=== PATIENT | female | born 1995 | race Caucasian/White ===

== ENCOUNTER → 2016-12-09 23:19 | Observation (INO) ==
--- NOTE | 2016-12-09 20:54 | OB/GYN History & Physical ---
Date of Encounter: 12/09/16 Time of Encounter: 20:46 Assessment and Plan (1) Uterine contractions during Current visit: Yes Status: Acute NST CBC 1 Liter LR fluid bolus Urinalysis and reflex culture Serial vaginal exams POC per consult with Dr Carrion (2) History of delivery affecting Current visit: Yes Status: Acute Dr Carrion made aware of patient's arrival and history. History of Present Illness Chief complaint: Contractions HPI: Ms. Delacruz is a 21 year old at 38 weeks and 2 days gestation that arrives to labor and delivery with c/o abdominal cramping throughout the day. She states she is having hot flashes and nausea. She has eaten today with her last meal at 1300. This is complicated by a previous LTCS and GDM A1. She states decreased positive movement during the day, but this has resolved within the past 2 hours. She denies headache, vision changes, epigastric pain, LOF, and vaginal bleeding. She is scheduled to have her repeat C/S with Dr Orellana on Thursday morning. Her blood type is O+ She is GBS negative She is rubella and varicella immune She is HepB and HIV nonreactive Past Med Surg Social Fam HX - Past Medical History Medical history: no medical history Psychiatric history: anxiety, depression - Past Surgical History Surgical History: appendectomy, cholecystectomy - Social History Smoking Status: Current every day smoker Packs per day: 1/2 pack a day Smokeless Tobacco Status: No Alcohol use: none Drug use: none Obstetrical History - Pregnancies : 2 Para: 1 Term: 1 : 0 Ab's: 0 Livin Medications and Allergies metFORMIN [Glucophage] 500 mg PO BIDWM 12/09/16 [History] Allergies No Known Allergies Allergy (Verified 12/09/16 20:19) Review of System OB All systems PM: reviewed and no additional remarkable complaints except as stated Exam - Constitutional Constitutional: well developed, well nourished, no acute distress, average body habitus - HEENT HEENT: Normocephaly, Mucus Membranes Moist - Lungs Respiratory exam: CTAB - Cardiovascular Cardiovascular exam: RRR, +S1, +S2 - Abdomen Abdomen: Present: bowel sounds normal, gravid, non tender - Extremities Extremities exam: normal capillary refill, normal inspection, radial pulses palpable and symetrical Deep Tendon Reflex Grade: 1+ Diminished - Vagina Vagina: Present: normal moisture - Cervix Dilation: 0 (FT per RN exam) Station: -3 - Uterus Uterus exam: Present: normal size, normal contour Results All other labs normal. - VTE Reasons for not Prescribing Prophylaxis: Treatment not Indicated - Low risk for VTE
[2016-12-09 21:14] LABS: Basophils % 0.2 %; Eosinophils # 0.2 K/mcL (0.0-0.6); Eosinophils % 1.8 %; Hematocrit 35.3 % (35.3-44.9); Hemoglobin 11.9 g/dL (11.5-15.4); Immature Granulocytes % 0.5 % (0-4); Immature Platelets 10.8 % (1.1-6.1); Lymphocytes # 2.4 K/mcL (0.6-4.6); Lymphocytes % 20.9 %; Mean Corpuscular HGB Conc 33.7 g/dL (31.6-35.5); Mean Corpuscular Hemoglobin 26.9 pg (28.0-33.3); Mean Corpuscular Volume 79.7 fL (83.0-100.0); Mean Platelet Volume 11.3 fL (9.4-12.4); Monocytes % 8.6 %; Neutrophils # 7.7 K/mcL (1.6-8.9); Platelet Count 181 K/mcL (140-400); Red Blood Count 4.43 M/mcL (3.82-4.97); Red Cell Distribution Width 14.3 % (11.5-14.5)
[2016-12-09 22:06] LABS: Bilirubin,Urine Small (Negative); Blood,Urine Negative (Negative); Clarity,Urine Cloudy (Clear); Color,Urine Dark Yellow (Yellow); Glucose,Urine (UA) Normal (Normal); Ketones,Urine Trace mg/dL (Negative); Leukocyte Esterase,Urine Small (Negative); Nitrite,Urine Negative (Negative); Protein,Urine Trace mg/dL (Neg-Trace); Specific Gravity,Urine 1.029 (1.010-1.025); Urobilinogen,Urine Normal (Normal)
[2016-12-09 22:07] LABS: Bacteria,Urine None Seen per hpf (None-Few); Hyaline Casts,Urine None Seen per lpf (None-Few); Squamous Epithelial Cell,Urine Many per lpf (None-Few)
[2016-12-09 22:25] LABS: RBC,Urine 0-3 per hpf (0-3)
--- NOTE | 2016-12-09 22:44 | Discharge Summary ---
Date of Encounter: 12/09/16 Time of Encounter: 22:44 - Discharge Diagnosis (1) Uterine contractions during Priority: Primary Status: Acute Comments: Dehydration present per urinalysis Serial vaginal exams; no cervical change NST reactive; 130 baseline with 15x15 accels and moderate variability. Contractions every 3-5 minutes per toco. Contractions palpate mild and uterus palpates soft between contractions. Prodromal labor without cervical change - therapeutic rest with 5mg of ambien now and send home Follow up with routine care as previously scheduled. Discharge home with labor precautions; patient to return if contractions don't stop in am. (2) History of delivery affecting Priority: Secondary Status: Acute Comments: No cervical change prior to 39 weeks with contractions. Discharge home per consult with POC with Dr Carrion (3) Dehydration Priority: Primary Status: Acute Comments: Dehydrated per urinalysis. 2L LR bolus given Encouraged patient to drink at least 2 liters of water daily (4) Proteinuria complicating Priority: Primary Status: Acute Comments: Discussed POC with Dr Carrion Refer to [facility] on outpatient basis - Discharge Medications Home Medications: metFORMIN [Glucophage] 500 mg PO BIDWM 12/09/16 [History] Allergies/Adverse Reactions: Allergies No Known Allergies Allergy (Verified 12/09/16 20:19) Data Procedures and tests throughout hospitalization: Laboratory Tests 12/09/16 12/09/16 20:45 21:55 WBC 11.4 H RBC 4.43 Hgb 11.9 Hct 35.3 MCV 79.7 L MCH 26.9 L MCHC 33.7 RDW 14.3 Plt Count 181 MPV 11.3 Immature Gran % 0.5 Seg Neutrophils % 68.0 Lymphocytes % 20.9 Monocytes % 8.6 Eosinophils % 1.8 Basophils % 0.2 Neutrophils # 7.7 Lymphocytes # 2.4 Monocytes # 1.0 Eosinophils # 0.2 Basophils # 0.0 Immature Plt Fraction 10.8 H Urine Color Dark Yellow Urine Clarity Cloudy A Urine pH 6.0 Ur Specific Quinn 1.029 H Urine Protein Trace Urine Glucose (UA) Normal Urine Ketones Trace H Urine Blood Negative Urine Nitrite Negative Urine Bilirubin Small H Urine Urobilinogen Normal Ur Leukocyte Esterase Small H Urine Microscopic RBC 0-3 Urine Microscopic WBC 3-5 H Ur Squamous Epith Cells Many H Urine Bacteria None Seen Hyaline Casts None Seen Ur Culture Indicated? YES A Labs on day of discharge: Labs from last 24 hours 12/09/16 12/09/16 21:55 20:45 WBC 11.4 H RBC 4.43 Hgb 11.9 Hct 35.3 MCV 79.7 L MCH 26.9 L MCHC 33.7 RDW 14.3 Plt Count 181 MPV 11.3 Immature Gran % 0.5 Seg Neutrophils % 68.0 Lymphocytes % 20.9 Monocytes % 8.6 Eosinophils % 1.8 Basophils % 0.2 Neutrophils # 7.7 Lymphocytes # 2.4 Monocytes # 1.0 Eosinophils # 0.2 Basophils # 0.0 Immature Plt Fraction 10.8 H Urine Color Dark Yellow Urine Clarity Cloudy A Urine pH 6.0 Ur Specific Quinn 1.029 H Urine Protein Trace Urine Glucose (UA) Normal Urine Ketones Trace H Urine Blood Negative Urine Nitrite Negative Urine Bilirubin Small H Urine Urobilinogen Normal Ur Leukocyte Esterase Small H Urine Microscopic RBC 0-3 Urine Microscopic WBC 3-5 H Ur Squamous Epith Cells Many H Urine Bacteria None Seen Hyaline Casts None Seen Ur Culture Indicated? YES A Date of admission: 12/09/16 20:01 Discharging clinician: Macey Lopez Anticipated date of discharge: 12/09/16 - Patient Status Disposition: Home, Self-Care Condition: Good Functional capacity at discharge: independent ambulation Overall status at discharge: patient is progressing back to baseline - Discharge Instructions Follow Up With: Kvng Orellana DO [Partnered Physician] - - Diet and Activity Activity: resume usual activities as tolerated Diet: regular diet (Drink at least 2 liters of water daily in addition to other liquids. 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
[~2016-12-09 23:19] MED LIST: Ringers Solution, Lactated 1,000 ML IVC ONE; Ringers Solution, Lactated 1,000 ML ONE
== END | disposition home or self-care (01) ==
LOC: 1NENULAB
PROVIDERS: ADMIT Student in an Organized Health Care Education/Training Program; ATTEND Student in an Organized Health Care Education/Training Program

== ENCOUNTER → 2016-12-11 17:15 | Observation (INO) ==
[2016-12-11 17:05] VITALS: BP 118/74
--- NOTE | 2016-12-11 17:54 | OB/GYN Progress Note ---
Date of Encounter: 12/11/16 Time of Encounter: 17:50 - Assessment and Plan (1) False labor Current Visit: Yes Status: Acute Pt continues to have contractions every 3-4 minutes, but able to be distracted through them. Pt was checked at [address] Orellana. Exam remains unchanged still /. Will discharge home. Discussed labor precautions and when to return to triage discussed with patient and family. All vocalize understanding. Dr. Delaney updated. (2) NST (non-stress test) reactive Current Visit: Yes Status: Acute Baseline 145 Subjective - Subjective Interval history: sent from office after BPP for labor evaluation. Pt states she has been gerhard off and on for the last few days. Pt reports movement, denies leaking of fluid or vaginal bleeding. Pt states she feels a little pelvic pressure with each contraction. Repeat C/S if in labor. Antepartum ROS: movement normal, contractions, no loss of fluid, no vaginal bleeding Objective - Vital Signs Vital Signs: Vital Signs Temp Pulse Resp BP Pulse Ox 12/11/16 16:58 97.5 F L 88 14 118/74 99 Intake and Output 12/11/16 12/11/16 12/11/16 07:59 15:59 23:59 Other: Weight 90.4 kg Patient Weight 12/11/16 23:59 Weight 90.4 kg - Exam FHR: auscultation normal FHR comments: Reactive NST baseline 145 Auscultation: bilateral: normal Abdomen: Present: normal appearance Uterus: Present: normal Cervical dilation:
== END | disposition home or self-care (01) ==
LOC: 1NENULAB
PROVIDERS: ADMIT Obstetrics & Gynecology; ATTEND Obstetrics & Gynecology

== ENCOUNTER 2016-12-13 15:56 | Inpatient (IN) ==
[~2016-12-13 15:56] MED LIST changes: +CeFAZolin Pre 2,000 MG/100 ML 2,000 MG/100 ML BAG IVPB ONE; +Famotidine 20 MG/2 ML VIAL IVP ONE; +Metoclopramide 10 MG/2 ML VIAL IVP ONE; -Ringers Solution, Lactated 1,000 ML IVC ONE; -Ringers Solution, Lactated 1,000 ML ONE
[2016-12-13] MEDS ORDERED: Ringers Solution, Lactated 1,000 ML ONE ×3 (15:58→18:18)
[2016-12-13] MEDS ORDERED: Ringers Solution, Lactated 1,000 ML IVC SCH ×2 (16:00→19:33)
[2016-12-13] MEDS ORDERED: Oxytocin 20 units/ LR 1000 mL 20 UNIT/1,000 ML BAG IVC SCH ×2 (16:00→19:33)
--- NOTE | 2016-12-13 16:06 | OB/GYN History & Physical ---
Date of Encounter: 12/13/16 Time of Encounter: 16:00 Assessment and Plan (1) and not yet delivered in third trimester Current visit: Yes Status: Acute (2) 38 weeks gestation of Current visit: Yes Status: Acute (3) Active labor at term Current visit: Yes Status: Acute (4) Gestational diabetes mellitus (GDM) in third trimester controlled on oral hypoglycemic drug Current visit: Yes Status: Acute (5) History of delivery affecting Current visit: No Status: Acute We will prepare the patient for a repeat low transverse section History of Present Illness HPI: Ms. Delacruz is a 21 year old female 2 para 1001 at 38-6/7 weeks who presented to labor and delivery with complaint of contractions getting more uncomfortable. Patient has been seen on labor and delivery twice in the past week for contractions. She was having irregular contractions no cervical change was noted and she was discharged home. Approximately 2 days ago patient was seen for an NST she was complaining of no movement and biophysical was obtained 8 out of 8. The patient was examined at that time was noted to be fingertip to 1 cm and she had previously been fingertip per patient's 2 days prior to that. Patient was sent to labor and delivery 2 days ago for prolonged monitoring because of complaining of contractions but no further change was noted and she was discharged home. Patient had called this morning stating that she been gerhard all day yesterday and the contractions getting stronger. She was encouraged to drink some fluids and see how the contractions were. She states this started to space out but approximately 2 hours ago started getting more uncomfortable that she came on in. Patient was noted to have made cervical change she is now 2 cm -2 station. Patient is a gestational diabetic diet control. Patient did not follow-up with a three-hour Glucola pill approximately 3 weeks ago and she failed all 4 test. We have had her on a diet ever since and started on metformin but has not taken any for 2 days. all blood sugars have been within normal limits. We did get her in for dietary consult the patient no showed. She is a previous section was scheduled in 2 days for her repeat. Patient is Rh+ and GBS negative and rubella positive Past Med Surg Social Fam HX - Past Medical History Medical history: no medical history Psychiatric history: anxiety, depression - Past Surgical History Surgical History: appendectomy, , cholecystectomy - Social History Smoking Status: Current every day smoker Packs per day: <0.5 Smokeless Tobacco Status: No Alcohol use: none Drug use: none Occupational status: employed Current living situation: Home - Independent Activity Level: Independent ambulation Recent Out of Country Travel Within the Last 8 Weeks: No Exposure or Possible Exposure to Illness During Travel: No - Family History Mother Adopted: Yes Living Status: Still Living Hx Family Cardiac Disorders: No Hx Family Respiratory Disorders: No Hx Family Cancer: No Hx Family GI Disorders: No Hx Family Endocrine Disorder: No Hx Family Neuromuscular Disorders: No Hx Family Neurologic Disorders: No Hx Family HEENT Disorders: No Hx Family Autoimmune Disorders: No - Additional Family History Additional family history: Patient was adopted Obstetrical History - Pregnancies : 2 Para: 1 Term: 1 Livin Medications and Allergies metFORMIN [Glucophage] 500 mg PO BIDWM 12/09/16 [History] Allergies No Known Allergies Allergy (Verified 12/13/16 15:55) Review of System OB All systems PM: reviewed and no additional remarkable complaints except as stated - Menstruation Menstruation: other (Contractions every 3-5 minutes) Exam - Constitutional Constitutional: well developed, well nourished, mild distress, obese - HEENT HEENT: EOMI, PERRL - Neck Neck exam: full ROM - Lungs Respiratory exam: CTAB - Cardiovascular Cardiovascular exam: RRR - Abdomen Abdomen: Present: bowel sounds normal, gravid - Vagina Vagina: Present: normal moisture - Cervix Dilation: 2 Effacement: 70 Station: -2 Results All other labs normal.
[2016-12-13 16:16] LABS: Basophils % 0.3 %; Eosinophils # 0.1 K/mcL (0.0-0.6); Eosinophils % 0.9 %; Hematocrit 36.8 % (35.3-44.9); Hemoglobin 12.1 g/dL (11.5-15.4); Immature Granulocytes % 0.3 % (0-4); Lymphocytes # 2.2 K/mcL (0.6-4.6); Lymphocytes % 20.2 %; Mean Corpuscular HGB Conc 32.9 g/dL (31.6-35.5); Mean Corpuscular Hemoglobin 26.4 pg (28.0-33.3); Mean Corpuscular Volume 80.2 fL (83.0-100.0); Mean Platelet Volume 11.2 fL (9.4-12.4); Monocytes # 0.9 K/mcL (0.0-1.3); Monocytes % 8.1 %; Neutrophils # 7.7 K/mcL (1.6-8.9); Platelet Count 184 K/mcL (140-400); Red Blood Count 4.59 M/mcL (3.82-4.97); Red Cell Distribution Width 14.5 % (11.5-14.5); Segmented Neutrophils % 70.2 %
--- NOTE | 2016-12-13 16:36 | Anesthesia Evaluation PreOp ---
Date of Encounter: 12/13/16 Time of Encounter: 16:34 - Past History Planned Operation: Repeat Cardiac History: Denies any Significant Hx Pulmonary History: Smoker, Pack/yr (<0.5pack/day) MOBILITY MANAGER History: Denies Any Significant HX Other Medical History: Diabetes Type II (gestational) Anesthesia History: No Prior Anesthetic Complications, Past Anesthesia Alcohol Use: none Drug use: none Medications and Allergies metFORMIN [Glucophage] 500 mg PO BIDWM 12/09/16 [History] Allergies No Known Allergies Allergy (Verified 12/13/16 15:55) - Meds/Allergy Pre-op Review Medications Reviewed: Yes Allergies Reviewed: Yes Beta Blockers on Current Med List: No Anesthesia Results - Labs 12/13/16 16:05 Anesthesia Exam Height: 5' Weight: 89.9kg NPO (# of Hours): 8 Pain Scale: 0 Pain Scale Used: Numeric (1 - 10) - HEENT Pupil (Motor): Pupils equal Mallampati: I Teeth: Normal Oral Opening: Greater than 3 - MOBILITY MANAGER LOC: Oriented MOBILITY MANAGER Motor: Normal RUE, Normal LUE, Normal RLE, Normal LLE, Normal Face MOBILITY MANAGER Sensory: Normal: RUE, LUE, RLE, LLE, Face - Cardiac Rhythm: Regular Murmur: None JVD: No Carotid Bruit: No - Pulmonary Breath Sounds: bilateral Clear Respiratory Effort: Symmetrical Anesthesia Assess/Plan ASA Score: 2 Modified [place] Scale for Level of Consciousness: Cooperative, oriented, and tranquil Anesthetic Plan: General (plan b), Regional (plan a) Autologous Blood: Yes Monitoring Plan: Standard Monitors Recovery Plan: PACU
[2016-12-13] MEDS ORDERED: *HR* HYDROmorphone (PF) 1 MG/ML SYRINGE IVP PRN (16:38)
[2016-12-13] MEDS ORDERED: Ondansetron 4 MG/2 ML VIAL IVP ONE (16:38)
[2016-12-13] MEDS ORDERED: EPHEDrine 50 MG/ML VIAL ONE (16:42)
[2016-12-13] MEDS ORDERED: *HR* Oxytocin 10 UNIT/ML VIAL IM ONE (16:44)
[2016-12-13] MEDS ORDERED: *HR* Morphine Sulfate/PF 5 MG/10 ML AMPUL ONE (16:45)
[2016-12-13] MEDS ORDERED: *HR* FentaNYL (PF) 100 MCG/2 ML VIAL ONE (16:45)
[2016-12-13] MEDS ORDERED: Ondansetron 4 MG/2 ML VIAL ONE (16:45)
--- NOTE | 2016-12-13 16:55 | OB/GYN Procedure Note ---
Section - Date of procedure: 12/13/16 Preop diagnosis: other (Intrauterine at 38-6/7 weeks, active labor, previous section 1) Post-op diagnosis: same (With extensive pelvic and abdominal adhesions uterus adherent to the abdominal wall) Procedure: other (Repeat high transverse section with lysis of extensive adhesions) Surgeon: Kvng Orellana Estimated blood loss (cc): 1,200 Anesthesiologist: Tyrese Orozco Home Housekeeper: Scott Armenta Anesthesia Type: Spinal section complications: other (Dense adhesions of the uterus to the abdominal wall) Disposition: L&D Recovery Room Specimens: Placenta - Infant (s) A Delivery Date: 12/13/16 Infant Delivery Time: 17:58 Presentation: vertex Position: KASEY Route of delivery: other ( section) Gender: Female Viability: Viable Pounds: 6 Ounces: 14 Gram Weight: 3.125 kg at 1 minute: 8 at 5 minutes: 9 Shoulder Dystocia: not encountered Specimens collected: cord blood Placenta: spontaneous Cord: 3 umbilical vessels - Narrative Narrative: Patient is a 21-year-old 2 para 1 at 38-6/7 weeks who presented to labor and delivery complaining of contractions for the past couple days. Patient has been seen on labor and delivery today with a times in this past week due to contractions. She had not been making any cervical change however today she was a good 2 cm 70% -2. When she was here earlier in the week she was fingertip 2 days ago she was fingertip to 1 cm. Patient is gerhard every 2-4 minutes and uncomfortable. Patient is a previous section and repeat was called. Patient is a gestational diabetic on metformin but has not taken anything in 48 hours. She did not follow up with her 3 hour Glucola until approximately 1 month ago and she failed all 4 tests and we have been trying to get her to dietary for dietary management. She no showed for that appointment her blood sugars have all been within normal limits as far as what she has been showing us. Procedure: Patient was taken the operating room where spinal anesthesia was found adequate. She was placed in the dorsal supine position with leftward tilt prepped and draped in usual fashion. Timeout was then obtained. A Pfannenstiel incision was made with a scalpel and carried down through the underlying tissue to the fascia was identified. Fascia was nicked in midline extended laterally with the Montgomery scissors. The superior and inferior edges of the fascia were grasped tented up dissected off the rectus muscles. Rectus muscles were noted to be adherent to the myometrium of the uterus. I was unable to get the muscle in took approximately 30 minutes for us to make a window through the rectus muscles and peritoneum with right to get to the point we could deliver the baby. Any attempt to get in we will getting into moderate bleeding because the serosal surface of the uterus had been disrupted trying to peel it off. An incision was then made through the myometrium and then the incision was extended laterally. We did have to go through the placenta at this point the incision was at the 's chest and we have to reach down deep into the pelvis disengage the head and bring it up through the incision. Once we get the out the cord was clamped and cut and infant was handed off to waiting pediatric team. Cord blood was collected and sent was spontaneously delivered. At this point we proceeded to trying resected off the uterus from the abdominal wall. Once it was able to find some complaints using both Metzenbaum scissors and the monopolar cautery I was able to dissected the fundus of the uterus off the parietal peritoneum anteriorly enough to then be able to pull the uterus up through the abdomen. We then proceeded to try and resect of the peritoneum off the lower uterine segment and bladder. Once we had this Was NOTED THAT THE INCISION WAS VERY HIGH IN THE FUNDUS AT THE LEVEL OF THE ROUND LIGAMENTS. The uterus was in multiple layers and has decided this time we will go ahead and try and close in a 3 layer closure. The endometrial layer was closed with an 0 Vicryl in a running stitch followed by a second layer in the mid layer of the muscle and then a serosal suture. Wants to get it all back together we had good hemostasis. Ovaries and tubes were normal I did not identify any other adhesions within the abdomen. The uterus was returned to the abdomen and cleaned of all clots and debris and copiously irrigated. Interceed was then placed across the incision to try and prevent this from it using up again. The parietal peritoneum was then brought together using a 2-0 Vicryl in a running stitch. The fascia was then closed using a #1 stratafix in a running stitch and the subcutaneous tissue was brought together using an 0 chromic. Because of the surgery was decided the skin would be closed using a stapler to rule out any underlying fluid to see up and out.. A ana dressing was then applied. All needles lap sponge counts were correct 3 she did receive preoperative antibiotics.
[2016-12-13] MEDS ORDERED: Metoclopramide 10 MG/2 ML VIAL IVP PRN (19:33)
[2016-12-13] MEDS ORDERED: Naloxone 0.4 MG/ML INJ IVP PRN (19:33)
[2016-12-13] MEDS ORDERED: Sennosides 8.6 MG TABLET PO PRN (19:33)
[2016-12-13] MEDS ORDERED: Ondansetron 4 MG/2 ML VIAL IVP PRN (19:33)
[2016-12-13] MEDS: *HR* HYDROmorphone (PF) 1 MG/ML SYRINGE IVP PRN ×5 (19:58→22:48)
[2016-12-13] MEDS ORDERED: *HR* Morphine 2 MG/ML SYRINGE IVP PRN (20:22)
--- NOTE | 2016-12-13 20:22 | Anesthesia Evaluation Post Op ---
Date of Encounter: 12/13/16 Time of Encounter: 20:21 - Lungs Lungs: Clear Ascult./Percussion - Airway Airway: Non-obstructed - Cardiovascular Regular Rate, Baseline Rhythm - Mental Status Mental Status: Alert & Oriented, Answers Appropriately - Pain Pain Scale: 5 Pain Scale used: Numeric (1 - 10) - Nausea Vomiting Nausea Vomiting: Not Present - Hydration Hydration: NPO, Kaufman catheter - Discharge PostOp Status: Transfer Patient to floor
[2016-12-13] MEDS: Oxytocin 20 units/ LR 1000 mL 20 UNIT/1,000 ML BAG IVC SCH (20:24)
[2016-12-13] MEDS ORDERED: Ringers Solution, Lactated 1,000 ML IVC ONE (22:32)
[2016-12-13] MEDS ORDERED: ceFAZolin 3,000 MG in D5% in Water 100 ML IVPB ONE (22:39)
[2016-12-13] MEDS ORDERED: Vancomycin 1,250 MG in D5% in Water 250 ML IVPB ONE (22:39)
[2016-12-14 00:32] LABS: Mean Corpuscular HGB Conc 32.9 g/dL (31.6-35.5); Mean Corpuscular Hemoglobin 26.8 pg (28.0-33.3); Mean Corpuscular Volume 81.4 fL (83.0-100.0); Mean Platelet Volume 11.5 fL (9.4-12.4); Platelet Count 190 K/mcL (140-400); Red Blood Count 2.95 M/mcL (3.82-4.97); Red Cell Distribution Width 14.7 % (11.5-14.5)
[2016-12-14 00:33] LABS: Hemoglobin 7.9 g/dL (11.5-15.4)
[2016-12-14] MEDS: Oxytocin 20 units/ LR 1000 mL 20 UNIT/1,000 ML BAG IVC SCH (02:35)
[2016-12-14] MEDS: *HR* HYDROmorphone (PF) 1 MG/ML SYRINGE IVP PRN (02:36)
[2016-12-14 06:08] LABS: Basophils % 0.1 %; Eosinophils % 0.1 %; Hematocrit 22.3 % (35.3-44.9); Hemoglobin 7.4 g/dL (11.5-15.4); Immature Granulocytes % 0.4 % (0-4); Immature Platelets 9.5 % (1.1-6.1); Lymphocytes # 1.8 K/mcL (0.6-4.6); Lymphocytes % 12.7 %; Mean Corpuscular HGB Conc 33.2 g/dL (31.6-35.5); Mean Corpuscular Hemoglobin 26.9 pg (28.0-33.3); Mean Corpuscular Volume 81.1 fL (83.0-100.0); Mean Platelet Volume 11.5 fL (9.4-12.4); Monocytes # 1.1 K/mcL (0.0-1.3); Monocytes % 7.7 %; Neutrophils # 11.1 K/mcL (1.6-8.9); Platelet Count 184 K/mcL (140-400); Red Blood Count 2.75 M/mcL (3.82-4.97); Red Cell Distribution Width 14.6 % (11.5-14.5)
[2016-12-14] MEDS: Prenatal Vit/FA 1 EACH TABLET PO SCH (07:45)
[2016-12-14] MEDS: *HR* OxyCODONE/APAP 5/325 TABLET PO PRN ×4 (07:45→23:29)
[2016-12-14] MEDS: Simethicone 80 MG TAB.CHEW PO PRN ×3 (07:46→19:45)
--- NOTE | 2016-12-14 08:31 | OB/GYN Progress Note ---
Date of Encounter: 12/14/16 Time of Encounter: 08:29 - Assessment and Plan (1) Status post delivery Current Visit: Yes Status: Acute Routine Postop/ care. Advance diet to regular at lunch. Subjective - Subjective Principal diagnosis: POD #1 repeat c/s Interval history: Patient reports abdominal soreness, but otherwise feels well. Patient reports: appetite normal, voiding normally, pain well controlled, ambulating normally, no dizzy ambulation, no nauseated [place]: doing well Objective - Vital Signs Latest vital signs: Vital Signs Temp Pulse Resp BP Pulse Ox 12/14/16 07:58 16 12/14/16 07:30 97.8 F 89 16 105/60 12/14/16 03:00 97.5 F L 79 18 104/69 95 12/14/16 00:41 97.6 F 98 18 99/65 96 12/13/16 23:45 98.1 F 99 16 97/64 98 12/13/16 22:45 97.9 F 120 18 99/56 99 12/13/16 21:45 97.9 F 108 16 100/57 96 12/13/16 21:15 98.1 F 110 16 109/71 97 Intake and Output 12/13/16 12/14/16 12/14/16 23:59 07:59 15:59 Intake Total 2700 / 2700 Output Total 50 / 50 275 / 275 Balance -50 / -50 2425 / 2425 Intake: IV Fluids 1999 / 1999 Pitocin 20 unit In 1,000 1000 / 1000 ml @ 125 mls/hr IVC .Q8H KEILA Rx#:[id number] Lactated Ringers 1,000 ML 1000 / 1000 @ 1000 mls/hr IVC .Q1H ONE Rx#:[id number] Oral 700 / 700 Output: Urine 275 / 275 Urethral (Kaufman) 175 / 175 Catheter 50 / 50 - Exam Lungs: bilateral: normal Chest: Normal S1, Normal S2 Extremities: Present: normal Abdomen: Present: normal appearance, soft. Absent: distention, tenderness Incision: Present: dressed Uterus: Present: normal, firm - Labs Labs: Laboratory Results - last 24 hr 12/13/16 12/13/16 12/14/16 16:05 16:05 00:27 WBC 11.0 16.8 H D RBC 4.59 2.95 L Hgb 12.1 7.9 L D Hct 36.8 24.0 L MCV 80.2 L 81.4 L MCH 26.4 L 26.8 L MCHC 32.9 32.9 RDW 14.5 14.7 H Plt Count 184 190 MPV 11.2 11.5 Immature Gran % 0.3 Seg Neutrophils % 70.2 Lymphocytes % 20.2 Monocytes % 8.1 Eosinophils % 0.9 Basophils % 0.3 Neutrophils # 7.7 Lymphocytes # 2.2 Monocytes # 0.9 Eosinophils # 0.1 Basophils # 0.0 Immature Plt Fraction Glucose 75 12/14/16 05:58 WBC 14.1 H RBC 2.75 L Hgb 7.4 L Hct 22.3 L MCV 81.1 L MCH 26.9 L MCHC 33.2 RDW 14.6 H Plt Count 184 MPV 11.5 Immature Gran % 0.4 Seg Neutrophils % 79.0 Lymphocytes % 12.7 Monocytes % 7.7 Eosinophils % 0.1 Basophils % 0.1 Neutrophils # 11.1 H Lymphocytes # 1.8 Monocytes # 1.1 Eosinophils # 0.0 Basophils # 0.0 Immature Plt Fraction 9.5 H Glucose
[2016-12-14] MEDS: Ibuprofen 600 MG TABLET PO PRN ×2 (15:49→23:32)
[2016-12-15] MEDS: *HR* OxyCODONE/APAP 5/325 TABLET PO PRN ×3 (05:09→16:59)
[2016-12-15] MEDS: Simethicone 80 MG TAB.CHEW PO PRN (08:04)
[2016-12-15] MEDS: Prenatal Vit/FA 1 EACH TABLET PO SCH (08:04)
[2016-12-15] MEDS: Ibuprofen 600 MG TABLET PO PRN ×3 (09:41→22:44)
--- NOTE | 2016-12-15 12:12 | OB/GYN Progress Note ---
Date of Encounter: 12/15/16 Time of Encounter: 12:10 - Assessment and Plan (1) Mother currently breast-feeding Current Visit: Yes Status: Acute Patient states difficulty with baby latching and . Patient reports expressing colostrum well. Working with during stay. Patient states she is able to pump and the baby will eat well but reports difficulty with the baby latching on. (2) Status post delivery Current Visit: Yes Status: Acute Patient states pain is moderate to incision site but reports that it is pretty well controlled. Incision is clean, dry, and intact with ana in place. Patient reports she has not yet passed any flatus. Encouraged patient to walk more frequently betweem feedings of the baby to help with passing flatus. Subjective - Subjective Principal diagnosis: section Patient reports: appetite normal, voiding normally, pain well controlled, ambulating normally (Patient is not yet passing flatus. ) [place]: doing well Objective - Vital Signs Latest vital signs: Vital Signs Temp Pulse Pulse Resp BP Pulse Ox 12/15/16 08:10 98.1 F 99 16 115/77 12/14/16 23:33 98.2 F 110 20 129/81 99 12/14/16 15:52 90 16 12/14/16 15:47 98.3 F 90 16 102/65 Intake and Output 12/14/16 12/15/16 12/15/16 23:59 07:59 15:59 Intake Total 820 / 820 Output Total 1400 / 1400 300 / 300 Balance -1400 / -1400 520 / 520 Intake: Oral 820 / 820 Output: Urine 1400 / 1400 300 / 300 Other: Meal Breakfast Percent of Meal Consumed 50% - Exam Lungs: bilateral: normal Chest: Normal S1, Normal S2 Extremities: Present: edema (1+ edema bilaterally ) Abdomen: Present: normal appearance, soft Incision: Present: normal, dry, intact Uterus: Present: normal, firm
[2016-12-16] MEDS: *HR* OxyCODONE/APAP 5/325 TABLET PO PRN (02:33)
[2016-12-16 08:59] VITALS: BP 119/73
--- NOTE | 2016-12-16 09:07 | Discharge Summary ---
Date of Encounter: 12/16/16 Time of Encounter: 09:05 - Discharge Diagnosis (1) Status post delivery Priority: Primary Status: Acute Comments: Pt meeting all milestones. Pt states pain well managed on po pain medications. Desires discharge. Concerned with latching. Discussed seeing . (2) Anemia, Priority: Secondary Status: Acute Comments: Home on iron supplement. - Discharge Medications Prescriptions: OxyCODONE/APAP 5/325 [Percocet 5/325 MG] 1 each PO Q4HR PRN #20 tablet PRN Reason: Moderate pain 4-6 Ibuprofen [Motrin] 600 mg PO Q6HR PRN #60 tablet PRN Reason: Cramping Docusate [Colace] 100 mg PO BID #60 capsule Ferrous Sulfate 325 mg PO DAILY #60 tablet Home Medications: Docusate [Colace] 100 mg PO BID #60 capsule 12/16/16 [Rx] Ferrous Sulfate 325 mg PO DAILY #60 tablet 12/16/16 [Rx] Ibuprofen [Motrin] 600 mg PO Q6HR PRN #60 tablet 12/16/16 [Rx] OxyCODONE/APAP 5/325 [Percocet 5/325 MG] 1 each PO Q4HR PRN #20 tablet 12/16/16 [Rx] Vit/FA 1 each PO DAILY tablet 12/16/16 [Rx] Allergies/Adverse Reactions: Allergies No Known Allergies Allergy (Verified 12/13/16 15:55) Data Procedures and tests throughout hospitalization: Laboratory Tests 12/13/16 12/13/16 12/14/16 16:05 16:05 00:27 WBC 11.0 16.8 H D RBC 4.59 2.95 L Hgb 12.1 7.9 L D Hct 36.8 24.0 L MCV 80.2 L 81.4 L MCH 26.4 L 26.8 L MCHC 32.9 32.9 RDW 14.5 14.7 H Plt Count 184 190 MPV 11.2 11.5 Immature Gran % 0.3 Seg Neutrophils % 70.2 Lymphocytes % 20.2 Monocytes % 8.1 Eosinophils % 0.9 Basophils % 0.3 Neutrophils # 7.7 Lymphocytes # 2.2 Monocytes # 0.9 Eosinophils # 0.1 Basophils # 0.0 Immature Plt Fraction Glucose 75 12/14/16 05:58 WBC 14.1 H RBC 2.75 L Hgb 7.4 L Hct 22.3 L MCV 81.1 L MCH 26.9 L MCHC 33.2 RDW 14.6 H Plt Count 184 MPV 11.5 Immature Gran % 0.4 Seg Neutrophils % 79.0 Lymphocytes % 12.7 Monocytes % 7.7 Eosinophils % 0.1 Basophils % 0.1 Neutrophils # 11.1 H Lymphocytes # 1.8 Monocytes # 1.1 Eosinophils # 0.0 Basophils # 0.0 Immature Plt Fraction 9.5 H Glucose Date of admission: 12/13/16 15:56 Discharging clinician: Elida Spencer Anticipated date of discharge: 12/16/16 - Patient Status Disposition: Home, Self-Care Condition: Good Functional capacity at discharge: independent ambulation Overall status at discharge: patient is back to baseline - Discharge Instructions - Diet and Activity Activity: resume usual activities as tolerated Diet: regular diet Hospital Course Reason for admission: active labor Delivery: section Episiotomy: none Laceration: none Other procedures: none complications: none Discharge diagnosis: IUP at term delivered [place] baby: female Hospital course: sarean Section - Date of procedure: 12/13/16 Preop diagnosis: other (Intrauterine at 38-6/7 weeks, active labor, previous section 1) Post-op diagnosis: same (With extensive pelvic and abdominal adhesions uterus adherent to the abdominal wall) Procedure: other (Repeat high transverse section with lysis of extensive adhesions) Surgeon: Kvng Orellana Estimated blood loss (cc): 1,200 Anesthesiologist: Tyrese Orozco Social Service Assistant: Scott Armenta Anesthesia Type: Spinal section complications: other (Dense adhesions of the uterus to the abdominal wall) Disposition: L&D Recovery Room Specimens: Placenta - Infant (s) A Infant Delivery Date: 12/13/16 Infant Delivery Time: 17:58 Presentation: vertex Position: KASEY Route of delivery: other ( section) Gender: Female Viability: Viable Pounds: 6 Ounces: 14 Gram Weight: 3.125 kg at 1 minute: 8 at 5 minutes: 9 Shoulder Dystocia: not encountered Specimens collected: cord blood Placenta: spontaneous Cord: 3 umbilical vessels - Narrative Narrative: Stable in . Appropriate for discharge after checking H/H Time Attestation: Total time spent providing and/or coordinating discharge services: Time Spent: Less than 30 minutes - VTE Documentation of Mechanical Device: Intermittent pneumatic compression device Exam - Constitutional Vitals: Temp Pulse Resp BP Pulse Ox 98 F 78 16 119/73 97 12/16/16 08:56 12/16/16 08:56 12/16/16 08:56 12/16/16 08:56 12/16/16 08:56 General appearance IM: A&O X 3 - Respiratory Respiratory exam: Present: CTAB - Cardiovascular Cardiovascular exam IM: Present: RRR - GI/Abdominal Incision: dressed (POCT) - Uterine Tone: Firm Uterus Position: At Umbilicus, Midline - Extremities Exam Extremities exam IM: Present: normal capillary refill, normal inspection - Neurological Exam Neurological exam: oriented X3 - Psychiatric Additional comments: reports good mood
[2016-12-16] MEDS: Ibuprofen 600 MG TABLET PO PRN (09:23)
[2016-12-16] MEDS: Prenatal Vit/FA 1 EACH TABLET PO SCH (09:23)
[2016-12-16 09:47] LABS: Hematocrit 22.8 % (35.3-44.9); Hemoglobin 7.4 g/dL (11.5-15.4)
== END 2016-12-16 13:00 | disposition home or self-care (01) | DRG 766 ==
LOC: 1NENULAB → 1NENUOBS 21:20
PROVIDERS: ADMIT Obstetrics & Gynecology; ATTEND Obstetrics & Gynecology

== ENCOUNTER → 2021-09-18 21:55 | Observation (INO) ==
[2021-09-18 19:15] LABS: Bacteria,Urine Few per hpf (None-Few); Bilirubin,Urine Negative (Negative); Blood,Urine Negative (Negative); Clarity,Urine Turbid (Clear); Color,Urine Yellow (Yellow); Glucose,Urine (UA) Normal (Normal); Ketones,Urine Negative (Negative); Leukocyte Esterase,Urine Negative (Negative); Mucus,Urine Few per lpf (None-Few); Nitrite,Urine Negative (Negative); Protein,Urine 30 mg/dL (Neg-Trace); RBC,Urine 0-3 per hpf (0-3); Specific Gravity,Urine 1.028 (1.010-1.025); Squamous Epithelial Cell,Urine Moderate per hpf (None-Few); Urobilinogen,Urine Normal (Normal); WBC,Urine 0-3 per hpf (0-3)
[2021-09-18 23:41] LABS: Candida DNA Not Detected (Not Detect); Gardnerella DNA DETECTED (Not Detect); Trichomonas DNA Not Detected (Not Detect)
== END | disposition home or self-care (01) ==
LOC: 1NENULAB
PROVIDERS: ADMIT Obstetrics & Gynecology; ATTEND Obstetrics & Gynecology

== ENCOUNTER → 2021-10-31 16:24 | Observation (INO) ==
[2021-10-31 15:24] LABS: Amorphous Sediment,Urine Few per hpf (None-Few); Bacteria,Urine Few per hpf (None-Few); Bilirubin,Urine Negative (Negative); Blood,Urine Negative (Negative); Calcium Oxalate Crystals,Urine Present per hpf; Clarity,Urine Turbid (Clear); Color,Urine Yellow (Yellow); Glucose,Urine (UA) Normal (Normal); Ketones,Urine Negative (Negative); Leukocyte Esterase,Urine Negative (Negative); Mucus,Urine Moderate per lpf (None-Few); Nitrite,Urine Negative (Negative); PH,Urine 6.5 pH Units (5.0-8.0); Protein,Urine 30 mg/dL (Neg-Trace); Renal Epithelial Cells,Urine Moderate per hpf (None-Few); Specific Gravity,Urine 1.024 (1.010-1.025); Squamous Epithelial Cell,Urine Moderate per hpf (None-Few); Transitional Epi Cells,Urine Moderate per hpf (None-Few); Urobilinogen,Urine Normal (Normal)
== END | disposition home or self-care (01) ==
LOC: 1NENULAB
PROVIDERS: ADMIT Advanced Practice Midwife; ATTEND Advanced Practice Midwife

== ENCOUNTER 2021-11-27 11:36 | Observation (INO) ==
[2021-11-27] MEDS ORDERED: Ringers Solution, Lactated 500 ML IVC ONE (12:06)
[2021-11-27 12:08] LABS: Basophils # 0.1 K/mcL (0.0-0.2); Basophils % 0.5 %; Eosinophils # 0.3 K/mcL (0.0-0.6); Eosinophils % 2.6 %; Hematocrit 37.3 % (35.3-44.9); Hemoglobin 12.4 g/dL (11.5-15.4); Immature Granulocytes % 0.5 % (0-4); Lymphocytes # 2.3 K/mcL (0.6-4.6); Lymphocytes % 20.4 %; Mean Corpuscular HGB Conc 33.2 g/dL (31.6-35.5); Mean Corpuscular Hemoglobin 27.7 pg (28.0-33.3); Mean Corpuscular Volume 83.4 fL (83.0-100.0); Mean Platelet Volume 12.5 fL (9.4-12.4); Monocytes # 0.9 K/mcL (0.0-1.3); Monocytes % 7.6 %; Neutrophils # 7.7 K/mcL (1.6-8.9); Platelet Count 154 K/mcL (140-400); Red Blood Count 4.47 M/mcL (3.82-4.97); Red Cell Distribution Width 13.2 % (11.5-14.5); Segmented Neutrophils % 68.4 %; White Blood Count 11.3 K/mcL (4.3-11.1)
[2021-11-27] MEDS ORDERED: Ringers Solution, Lactated 1,000 ML ONE (12:09)
[2021-11-27 12:17] LABS: Protein/Creatinine Ratio,Urine 0.23 mg/mg (0.00-0.20)
[2021-11-27 12:27] LABS: Alanine Aminotransferase 30 Units/L (7-52); Aspartate Amino Transferase 24 Units/L (13-39); BUN/Creatinine Ratio 15 (6-26); Blood Urea Nitrogen 8 mg/dL (6-20); Lactate Dehydrogenase 170 Units/L (140-271); Uric Acid 3.8 mg/dL (2.3-7.6); eGFR For African Americans > 60 (> 60); eGFR For Non-African Americans > 60 (> 60)
[2021-11-27] MEDS ORDERED: Betamethasone Acet/SodPhos 30 MG/5 ML VIAL IM SCH (14:00)
[2021-11-27 14:13] LABS: Influenza A PCR Negative (Negative); Influenza B PCR Negative (Negative); Resp. Syncytial Virus PCR Negative (Negative)
[2021-11-27 15:17] LABS: SARS-CoV-2 by PCR (In House) Negative (Negative)
== END 2021-11-27 14:15 | disposition short-term general hospital (02) ==
LOC: 1NENULAB
PROVIDERS: ADMIT Obstetrics & Gynecology; ATTEND Obstetrics & Gynecology

== ENCOUNTER 2021-12-06 10:00 | Inpatient (IN) ==
[2021-12-06] MEDS ORDERED: Metoclopramide 10 MG/2 ML VIAL IVP ONE (11:12)
[2021-12-06] MEDS ORDERED: Famotidine 20 MG/2 ML VIAL IVP ONE (11:12)
[2021-12-06] MEDS ORDERED: Ringers Solution, Lactated 1,000 ML IVC SCH ×2 (11:15→16:07)
[2021-12-06] MEDS ORDERED: Oxytocin 30 UNIT/503 ML BAG IVC SCH (11:15)
[2021-12-06] MEDS ORDERED: CeFAZolin 2,000 MG/120 ML BAG IVPB ONE (11:15)
[2021-12-06 11:48] LABS: Basophils # 0.1 K/mcL (0.0-0.2); Basophils % 0.6 %; Eosinophils # 0.3 K/mcL (0.0-0.6); Hematocrit 33.6 % (35.3-44.9); Hemoglobin 11.2 g/dL (11.5-15.4); Immature Granulocytes % 0.5 % (0-4); Mean Corpuscular HGB Conc 33.3 g/dL (31.6-35.5); Mean Corpuscular Hemoglobin 27.7 pg (28.0-33.3); Mean Corpuscular Volume 83.2 fL (83.0-100.0); Mean Platelet Volume 12.3 fL (9.4-12.4); Monocytes # 0.7 K/mcL (0.0-1.3); Neutrophils # 6.4 K/mcL (1.6-8.9); Platelet Count 154 K/mcL (140-400); Red Blood Count 4.04 M/mcL (3.82-4.97); Red Cell Distribution Width 13.7 % (11.5-14.5); Segmented Neutrophils % 67.9 %; White Blood Count 9.4 K/mcL (4.3-11.1)
[2021-12-06] MEDS ORDERED: *HR* FentaNYL (PF) 100 MCG/2 ML VIAL ONE (12:14)
[2021-12-06] MEDS ORDERED: Ondansetron 4 MG/2 ML VIAL ONE (12:14)
[2021-12-06] MEDS ORDERED: *HR* Morphine Sulfate/PF 10 MG/10 ML AMPUL ONE (12:14)
[2021-12-06 12:18] LABS: Amphetamine Screen,Urine Negative ng/mL (Cutoff=1000); Barbiturate Screen,Urine Negative ng/mL (Cutoff=200); Benzodiazepines Screen,Urine Negative ng/mL (Cutoff=200); Cannabinoid Screen,Urine Positive ng/mL (Cutoff = 50); Cocaine Screen,Urine Negative ng/mL (Cutoff= 300); Opiate Screen,Urine Negative ng/mL (Cutoff=300); Phencyclidine Screen,Urine Negative ng/mL (Cutoff=25)
[2021-12-06 12:28] LABS: Influenza A PCR Negative (Negative); Influenza B PCR Negative (Negative); Resp. Syncytial Virus PCR Negative (Negative); SARS-CoV-2 by PCR (In House) Negative (Negative)
[2021-12-06] MEDS ORDERED: Acetaminophen IV 1,000 MG/100 ML BAG IVPB ONE (12:57)
[2021-12-06] MEDS ORDERED: Ketorolac 30 MG/ML VIAL ONE (14:10)
[2021-12-06] MEDS ORDERED: Ondansetron 4 MG/2 ML VIAL IVP PRN (16:07)
[2021-12-06] MEDS ORDERED: Metoclopramide 10 MG/2 ML VIAL IVP PRN (16:07)
[2021-12-06] MEDS: Ibuprofen 600 MG TABLET PO SCH (19:17)
[2021-12-06] MEDS: Acetaminophen 325 MG TABLET PO SCH (19:18)
[2021-12-06] MEDS: *HR* Enoxaparin 60 MG/0.6 ML SYRINGE SQ SCH (21:07)
[2021-12-07] MEDS: *HR* OxyCODONE Immed Rel 5 MG TABLET PO PRN ×3 (01:11→21:07)
[2021-12-07] MEDS: Acetaminophen 325 MG TABLET PO SCH ×4 (03:44→21:06)
[2021-12-07] MEDS: Ibuprofen 600 MG TABLET PO SCH ×3 (03:44→21:07)
[2021-12-07 04:40] LABS: Basophils % 0.3 %; Eosinophils # 0.1 K/mcL (0.0-0.6); Eosinophils % 1.3 %; Hematocrit 28.1 % (35.3-44.9); Immature Granulocytes % 0.3 % (0-4); Lymphocytes # 1.7 K/mcL (0.6-4.6); Lymphocytes % 18.5 %; Mean Corpuscular HGB Conc 32.4 g/dL (31.6-35.5); Mean Corpuscular Hemoglobin 26.7 pg (28.0-33.3); Mean Corpuscular Volume 82.4 fL (83.0-100.0); Mean Platelet Volume 12.2 fL (9.4-12.4); Monocytes # 0.7 K/mcL (0.0-1.3); Monocytes % 7.4 %; Neutrophils # 6.5 K/mcL (1.6-8.9); Platelet Count 140 K/mcL (140-400); Red Blood Count 3.41 M/mcL (3.82-4.97); Red Cell Distribution Width 13.6 % (11.5-14.5); Segmented Neutrophils % 72.2 %
[2021-12-07 04:48] LABS: Hemoglobin 9.1 g/dL (11.5-15.4)
[2021-12-07] MEDS: Simethicone 80 MG TAB.CHEW PO PRN ×3 (06:21→21:06)
[2021-12-07] MEDS: Prenatal Vit/FA 1 EACH TABLET PO SCH (08:55)
[2021-12-07] MEDS: *HR* Enoxaparin 60 MG/0.6 ML SYRINGE SQ SCH ×2 (08:56→21:05)
[2021-12-07] MEDS ORDERED: Simethicone 80 MG TAB.CHEW PO STA (14:43)
[2021-12-07] MEDS ORDERED: *HR* OxyCODONE Immed Rel 5 MG TABLET PO ONE (14:54)
[2021-12-08] MEDS: MOM Conc 10 ML UD.LIQ PO PRN ×2 (01:00→11:02)
[2021-12-08] MEDS: *HR* OxyCODONE Immed Rel 5 MG TABLET PO PRN ×3 (01:01→10:51)
[2021-12-08] MEDS ORDERED: *HR* OxyCODONE Immed Rel 5 MG TABLET PO ONE (01:49)
[2021-12-08 02:03] VITALS: O2SAT 97
[2021-12-08] MEDS: Ibuprofen 600 MG TABLET PO SCH (05:16)
[2021-12-08 07:36] VITALS: BP 109/63; PULSE 56; TEMP 97.9
[2021-12-08] MEDS: Prenatal Vit/FA 1 EACH TABLET PO SCH (07:45)
[2021-12-08] MEDS: *HR* Enoxaparin 60 MG/0.6 ML SYRINGE SQ SCH (07:45)
[2021-12-08] MEDS: Simethicone 80 MG TAB.CHEW PO PRN (11:02)
== END 2021-12-08 12:26 | disposition home or self-care (01) | DRG 783 ==
LOC: 1NENULAB 10:00 → 1NENUOBS 19:27
PROVIDERS: ADMIT Obstetrics & Gynecology; ATTEND Obstetrics & Gynecology